=== PATIENT | female | born 1945 | race Caucasian/White ===

== ENCOUNTER 2017-02-05 16:23 | Inpatient (IN) | payer MEDICARE, BC ==
[2017-02-05] MEDS: SODIUM CHLORIDE 0.9% FLUSH 10 ML SOL IV SCH (17:00)
[2017-02-05] MEDS ORDERED: ONDANSETRON HCL 4 MG/2 ML SOL IV PRN (17:48)
[2017-02-05] MEDS ORDERED: GENTAMICIN SULFATE IV ONE (18:15)
[2017-02-05] MEDS ORDERED: SODIUM CHLORIDE 0.9% IV ONE ×2 (18:15)
[2017-02-05] MEDS ORDERED: PIPERACILLIN/TAZOBACT 3.375 GM 3.375 GM in SODIUM CHLORIDE 0.9% 100 ML 100 ML IV ONE (18:15)
[2017-02-05] MEDS ORDERED: VANCOMYCIN HCL IV ONE (18:15)
[2017-02-05] MEDS ORDERED: LEVOFLOXACIN 500 MG (PREMIX) 500 MG/100 ML SOL IV ONE (18:15)
[2017-02-05] MEDS: ACETAMINOPHEN 500 MG 500 MG TAB PO PRN (18:50)
[2017-02-05] MEDS ORDERED: SODIUM CHLORIDE 0.9% 100 ML 100 ML IV ONE ×3 (20:05→23:21)
[2017-02-05] MEDS ORDERED: GENTAMICIN SULFATE 40 MG/ML SOL ONE ×2 (20:05→20:07)
[2017-02-05] MEDS ORDERED: OMEPRAZOLE 20 MG CAPSULE PO SCH (21:00)
[2017-02-05] MEDS ORDERED: SODIUM CHLORIDE 0.9% 250 ML 250 ML IV ONE (21:36)
[2017-02-05] MEDS ORDERED: VANCOMYCIN HYDROCHLORIDE 500 MG PDS IV ONE (21:36)
[2017-02-05] MEDS ORDERED: PIPERACILLIN/TAZOBACT 3.375 GM PDS IV ONE (23:21)
[2017-02-06] MEDS: SODIUM CHLORIDE 0.9% FLUSH 10 ML SOL IV SCH ×4 (00:19→16:48)
[2017-02-06] MEDS: ACETAMINOPHEN 500 MG 500 MG TAB PO PRN ×3 (01:50→20:10)
[2017-02-06 07:22] LABS: POTASSIUM 3.6 mMol/L (3.5-5.1)
[2017-02-06 07:23] LABS: BASOPHILS % (AUTO) 1 % (0-3); EOSINOPHILS % (AUTO) 0 % (0-9); HEMATOCRIT 34 % (35-47); MONOCYTES % (AUTO) 8.7 % (0-12); NEUTROPHILS % (AUTO) 81.4 % (37-80)
[2017-02-06 07:27] LABS: MEAN CORPUSCULAR VOLUME 77 fL (81-99)
[2017-02-06] MEDS: HYDROCHLOROTHIAZIDE/TRIAMTER 25/37.5 CAPSULE PO SCH (08:40)
[2017-02-06] MEDS: ASPIRIN 81 MG CHEWABLE CTB PO SCH (08:40)
[2017-02-06] MEDS: SERTRALINE HYDROCHLORIDE 50 MG TAB PO SCH (08:40)
[2017-02-06] MEDS: PANTOPRAZOLE SODIUM 40 MG ECT PO SCH (08:40)
[2017-02-06] MEDS ORDERED: AMLODIPINE 5 MG TAB PO SCH (09:00)
[2017-02-06] MEDS: AMLODIPINE 5 MG TAB PO SCH (10:00)
[2017-02-06] MEDS: LEVOFLOXACIN 500 MG TAB PO SCH (10:00)
[2017-02-06] MEDS: SODIUM CHLORIDE 0.9% 1000ML 1,000 ML IV SCH ×2 (10:00→18:06)
[2017-02-06] MEDS ORDERED: ALBUTEROL NEB SOL 2.5MG/3ML 1 VIAL SOL NEB PRN (11:41)
[2017-02-06] MEDS: [UNRECOGNIZED DRUG - OTHER] INH SCH (20:13)
[2017-02-07] MEDS: SODIUM CHLORIDE 0.9% FLUSH 10 ML SOL IV SCH ×5 (00:43→20:24)
[2017-02-07] MEDS: SODIUM CHLORIDE 0.9% 1000ML 1,000 ML IV SCH ×2 (01:35→09:54)
[2017-02-07] MEDS: ACETAMINOPHEN 500 MG 500 MG TAB PO PRN ×3 (01:41→16:49)
[2017-02-07 07:15] LABS: CALCIUM 7.8 mg/dl (8.5-10.1); POTASSIUM 3.4 mMol/L (3.5-5.1)
[2017-02-07 07:22] LABS: BASOPHILS % (AUTO) 1 % (0-3); EOSINOPHILS % (AUTO) 0 % (0-9); HEMATOCRIT 36 % (35-47); MEAN CORPUSCULAR HGB CONC 33.9 gm/dl (32.0-36.0); MONOCYTES % (AUTO) 9.1 % (0-12); NEUTROPHILS % (AUTO) 72.9 % (37-80)
[2017-02-07 07:24] LABS: MEAN CORPUSCULAR VOLUME 78 fL (81-99)
[2017-02-07] MEDS: SERTRALINE HYDROCHLORIDE 50 MG TAB PO SCH (08:34)
[2017-02-07] MEDS: [UNRECOGNIZED DRUG - OTHER] INH SCH ×2 (08:34→20:24)
[2017-02-07] MEDS: PANTOPRAZOLE SODIUM 40 MG ECT PO SCH (08:34)
[2017-02-07] MEDS: ASPIRIN 81 MG CHEWABLE CTB PO SCH (08:35)
[2017-02-07] MEDS: AMLODIPINE 5 MG TAB PO SCH (08:35)
[2017-02-07] MEDS: LEVOFLOXACIN 500 MG TAB PO SCH (08:35)
[2017-02-07] MEDS: HYDROCHLOROTHIAZIDE/TRIAMTER 25/37.5 CAPSULE PO SCH (08:35)
[2017-02-08] MEDS: SODIUM CHLORIDE 0.9% FLUSH 10 ML SOL IV SCH ×2 (01:55→08:56)
[2017-02-08 07:44] VITALS: BP 151/82; PULSE 89; RESP 20; TEMP 98.6; O2SAT 91
[2017-02-08] MEDS: [UNRECOGNIZED DRUG - OTHER] INH SCH (08:52)
[2017-02-08] MEDS: PANTOPRAZOLE SODIUM 40 MG ECT PO SCH (08:53)
[2017-02-08] MEDS: HYDROCHLOROTHIAZIDE/TRIAMTER 25/37.5 CAPSULE PO SCH (08:53)
[2017-02-08] MEDS: ASPIRIN 81 MG CHEWABLE CTB PO SCH (08:53)
[2017-02-08] MEDS: SERTRALINE HYDROCHLORIDE 50 MG TAB PO SCH (08:54)
[2017-02-08] MEDS: LEVOFLOXACIN 500 MG TAB PO SCH (08:54)
[2017-02-08] MEDS: AMLODIPINE 5 MG TAB PO SCH (08:54)
== END 2017-02-08 10:20 | disposition home or self-care (01) | DRG 872 ==
LOC: ACUTE CARE 16:23
PROVIDERS: ADMIT Family Medicine; ATTEND Family Medicine
DX: A41.9 Sepsis, unspecified organism (principal); N39.0 Urinary tract infection, site not specified
CPT/HCPCS: 36415; 80048; 85025; 87040; 94150; 94760; 94761; J1580; J1956; J2405; J2543; J3370